=== PATIENT | female | born 1950 | race Caucasian/White ===

== ENCOUNTER 2023-09-06 12:33 | Emergency (ER) | payer OTHER, MEDICARE ==
[2023-09-06 13:12] VITALS: BP 158/69; PULSE 72; RESP 18; TEMP 98; BMI 31.7
== END 2023-09-06 14:01 | disposition home or self-care (01) ==
LOC: FER 12:33
DX: S06.0XAD Concussion with loss of consciousness status unknown, subsequent encounter (principal); R51.9 Headache, unspecified; R41.3 Other amnesia; H57.89 Other specified disorders of eye and adnexa; W01.0XXD Fall on same level from slipping, tripping and stumbling without subsequent striking against object, subsequent encounter
CPT/HCPCS: 70450-TC; 99284-25